=== PATIENT | female | born 1990 | race Caucasian/White ===

== ENCOUNTER 2020-01-29 14:37 | Outpatient (CLI) | payer BC ==
--- NOTE | 2020-01-29 15:18 | ULT ---
LIMITED LEFT BREAST ULTRASOUND: HISTORY: A 29-year-old female with pain at the 12 and 1 o'clock positions of the left breast. FINDINGS: Sonographic evaluation of the region of pain demonstrates a 5 mm cyst at the 1 o'clock position and a 3 mm cyst at the 12 o'clock position of the left breast, both lesions about 1 cm from the nipple (at the region at the site of pain). IMPRESSION: BIRADS category 2 - benign findings. Return to age-appropriate screening based on age-appropriate ma mmographic screening based on risk factors.
== END 2020-01-29 14:38 | disposition home or self-care (01) ==
LOC: BICULT 14:37
PROVIDERS: ATTEND Obstetrics & Gynecology
DX: N64.4 Mastodynia (principal)